=== PATIENT | female | born 1980 | race Asian ===

== ENCOUNTER 2021-04-20 17:47 | Emergency (ER) | payer OTHER ==
[2021-04-20 18:10] LABS: BASOPHILS # (AUTO) 0.1 10^3/uL (0.0-0.1); BASOPHILS % (AUTO) 0.4 %; EOSINOPHILS # (AUTO) 0.1 10^3/uL (0.0-0.7); EOSINOPHILS % (AUTO) 0.7 %; HCT - HEMATOCRIT 34.4 % (37.0-47.0); HGB - HEMOGLOBIN 11.8 g/dL (12.0-16.0); LYMPHOCYTES # (AUTO) 3.2 10^3/uL (1.5-3.5); LYMPHOCYTES % (AUTO) 24.2 %; MEAN CORPUSCULAR HEMOGLOBIN 31.1 pg (27.0-31.0); MEAN CORPUSCULAR HGB CONC 34.3 g/dL (32.0-36.0); MEAN CORPUSCULAR VOLUME 90.5 fL (81.0-99.0); MEAN PLATELET VOLUME 10.8 fL (7.9-10.8); MONOCYTES # (AUTO) 0.6 10^3/uL (0.0-1.0); MONOCYTES % (AUTO) 4.5 %; NEUTROPHILS # (AUTO) 9.3 10^3/uL (1.5-6.6); NEUTROPHILS % (AUTO) 69.8 %; PLT - PLATELET COUNT 182 10^3/uL (130-450); WHITE BLOOD COUNT 13.3 x10^3/uL (4.8-10.8)
[2021-04-20 18:20] LABS: ALBUMIN 4.4 g/dL (3.2-5.5); ALBUMIN/GLOBULIN RATIO 1.4 (1.0-2.2); BILIRUBIN,TOTAL 0.6 mg/dL (0.2-1.0); CALCIUM 9.2 mg/dL (8.5-10.3); CREATININE 0.7 mg/dL (0.4-1.0); POTASSIUM 3.2 mmol/L (3.5-5.0); TOTAL PROTEIN 7.6 g/dL (6.7-8.2)
--- NOTE | 2021-04-20 18:52 | ED Physician Documentation ---
PD HPI ABD PAIN - Stated complaint Stated Complaint: ABD PX - Chief complaint Chief Complaint: Abd Pain - History obtained from History obtained from: Patient - Additional information Additional information: Healthy 41-year-old woman developed gradual onset but relatively sudden onset central abdominal pain associated with 3 episodes of vomiting since 3 PM this afternoon. No change in bowel movements. She has had ovarian cyst before. Pain radiates to the back. Last menses was about a week ago. No history of abdominal surgeries. Review of Systems Ten Systems: 10 systems reviewed and negative Constitutional: reports: Chills, Reviewed and negative Ears: reports: Reviewed and negative PD PAST MEDICAL HISTORY - Present Medications Home Medications: Ambulatory Orders Medication Instructions Recorded Confirmed Oxycodone HCl/Acetaminophen 1 - 2 each PO Q6H PRN #14 tablet 04/20/21 [Percocet 5-325 mg Tablet] - Allergies Allergies/Adverse Reactions: Allergies Allergy/AdvReac Type Severity Reaction Status Date / Time No Known Drug Allergies Allergy Verified 04/20/21 17:53 PD ED PE NORMAL - Vitals Vital signs reviewed: Yes - General General: Alert and oriented X 3, No acute distress - HEENT HEENT: PERRL, EOMI - Neck Neck: Supple, no meningeal sign, No bony TTP - Cardiac Cardiac: RRR, No murmur - Respiratory Respiratory: No respiratory distress, Clear bilaterally - Abdomen Abdomen: Normal bowel sounds, Soft, Other (Focally tender in the right lower quadrant without surgical signs) - Back Back: No CVA TTP, No spinal TTP - Derm Derm: Normal color, Warm and dry - Extremities Extremities: No edema, No calf tenderness / cord - Neuro Neuro: Alert and oriented X 3, Normal speech Results - Vitals Vitals: Vital Signs - 24 hr 04/20/21 04/20/21 04/20/21 17:53 19:56 21:00 Temperature 36.6 C Heart Rate 80 80 82 Respiratory 16 16 17 Rate Blood Pressure 113/62 96/64 90/65 O2 Saturation 100 100 100 04/20/21 22:05 Temperature 36.6 C Heart Rate 82 Respiratory 16 Rate Blood Pressure 104/55 L O2 Saturation 100 Oxygen O2 Source Room air - Labs Labs: Laboratory Tests 04/20/21 04/20/21 04/20/21 18:02 18:02 19:06 WBC 13.3 H RBC 3.80 L Hgb 11.8 L Hct 34.4 L MCV 90.5 MCH 31.1 H MCHC 34.3 RDW 13.0 Plt Count 182 MPV 10.8 Neut # (Auto) 9.3 H Lymph # (Auto) 3.2 [place] # (Auto) 0.6 Eos # (Auto) 0.1 Baso # (Auto) 0.1 Absolute Nucleated RBC 0.00 Nucleated RBC % 0.0 Sodium 138 Potassium 3.2 L Chloride 104 Carbon Dioxide 23 Anion Gap 11.0 BUN 18 Creatinine 0.7 Estimated GFR (MDRD) 93 Glucose 114 H Calcium 9.2 Total Bilirubin 0.6 AST 25 ALT 21 Alkaline Phosphatase 33 L Total Protein 7.6 Albumin 4.4 Globulin 3.2 Albumin/Globulin Ratio 1.4 Lipase 39 Urine Color YELLOW Urine Clarity CLEAR Urine pH 5.0 Ur Specific [place] >=1.030 H Urine Protein NEGATIVE Urine Glucose (UA) NEGATIVE Urine Ketones TRACE Urine Occult Blood SMALL H Urine Nitrite NEGATIVE Urine Bilirubin NEGATIVE Urine Urobilinogen 0.2 (NORMAL) Ur Leukocyte Esterase NEGATIVE Urine RBC 0-5 Urine WBC 4-5 Ur Squamous Epith Cells MOD Squamous H Urine Bacteria Moderate H Urine Mucus Moderate Strands Ur Microscopic Review INDICATED Urine Culture Comments NOT INDICATED Urine HCG, Qual 04/20/21 19:06 WBC RBC Hgb Hct MCV MCH MCHC RDW Plt Count MPV Neut # (Auto) Lymph # (Auto) [place] # (Auto) Eos # (Auto) Baso # (Auto) Absolute Nucleated RBC Nucleated RBC % Sodium Potassium Chloride Carbon Dioxide Anion Gap BUN Creatinine Estimated GFR (MDRD) Glucose Calcium Total Bilirubin AST ALT Alkaline Phosphatase Total Protein Albumin Globulin Albumin/Globulin Ratio Lipase Urine Color Urine Clarity Urine pH Ur Specific [place] Urine Protein Urine Glucose (UA) Urine Ketones Urine Occult Blood Urine Nitrite Urine Bilirubin Urine Urobilinogen Ur Leukocyte Esterase Urine RBC Urine WBC Ur Squamous Epith Cells Urine Bacteria Urine Mucus Ur Microscopic Review Urine Culture Comments Urine HCG, Qual NEGATIVE PD MEDICAL DECISION MAKING - ED course ED course: 41-year-old woman presents with rapid but not sudden onset right lower quadrant pain starting today. Her appendix on CT is normal. She has a large right ovarian cyst measuring 7.1 x 6.9 x 6.3 cm and bilateral renal cysts. This was followed by a pelvic ultrasound to rule out torsion and per the medical insurance claims specialist there was no evidence of torsion. She was feeling better after divided doses of medications here. Discussed the need for gynecology follow-up and usual return precautions. I am prescribing a short course of short-acting opioid pain medication for this patient. I have reviewed the patients ORTHOTIC AIDE and no concerning findings were noted. I have discussed that the opioids are for short term therapy only, and will not be refilled from the ED. Departure - Departure Disposition: 01 Home, Self Care Clinical Impression: Abdominal pain Qualifiers: Abdominal location: right lower quadrant Qualified Code(s): R10.31 - Right lower quadrant pain Ovarian cyst Qualifiers: Laterality: right Qualified Code(s): N83.201 - Unspecified ovarian cyst, right side Condition: Good Record reviewed to determine appropriate education?: Yes Instructions: ED Cyst Ovarian Follow-Up: [facility] [Provider Group] Prescriptions: Oxycodone HCl/Acetaminophen [Percocet 5-325 mg Tablet] 1 - 2 each PO Q6H PRN #14 tablet PRN Reason: pain Comments: You do have a fairly large right ovarian cyst, measuring 7.1 x 6.9 x 6.3 cm. This is a common phenomenon but there is thankfully no evidence of ovarian torsion. Return if you worsen or if pain is uncontrolled with the Percocet. You should also take ibuprofen per package instructions. Follow-up with the discovery guide regardless, consider ultrasonography in approximately 6 weeks to evaluate whether the cyst is still there or gone. The phone number for the local discovery guide office is on this form. Calling tomorrow for an appointment. I am prescribing a short course of narcotic pain medication for you. These are potentially dangerous and addictive medications that should be used carefully. These medications may constipate you. Take an [id number] stool softener (docusate) twice daily with plenty of water while taking these medications. If you go 24 hours without a bowel movement, take [id number] miralax, per package instructions. Do not drink or drive while taking these medications. If you received narcotic or sedating medications while in the emergency department, do not drive for 24 hours. Store this medication in a safe, secure place and out of reach of children. It is a violation of federal law to give or sell this medication to another person or to use in a manner other than prescribed. The ED will not refill narcotic prescriptions, including prescriptions lost or stolen. To dispose of unwanted medications: 1. [facility] at [address] in [place] has a medication drop box. They accept prescription medications (in pill form) Monday through Monday 9:00 a.m. to 5:00 p.m. 2. The [facility] [employer] accepts prescription medications (in pill form only) for disposal year round. Call for more information. 3. Contact the [facility] for the next [facility] sponsored prescription drug collection event. , [phone], or [phone]; Note that many narcotic pain relievers also contain Tylenol/acetaminophen. Please ensure that your total dose of acetaminophen from all sources does not exceed 3 g (3000 mg) per day. Discharge Date/Time: 04/20/21 22:14
[2021-04-20] MEDS ORDERED: MORPHINE 2 MG/ML CARPUJECT IVP STA (19:08)
[2021-04-20] MEDS ORDERED: ONDANSETRON 4 MG/2 ML VIAL IVP STA (19:08)
[2021-04-20 19:20] LABS: BILIRUBIN,URINE NEGATIVE (NEGATIVE); GLUCOSE, URINE (UA) NEGATIVE (NEGATIVE); KETONES,URINE (UA) TRACE mg/dL (NEGATIVE); LEUKOCYTE ESTERASE, URINE NEGATIVE (NEGATIVE); NITRITE,URINE NEGATIVE (NEGATIVE); OCCULT BLOOD,URINE SMALL (NEGATIVE); PROTEIN,URINE NEGATIVE (NEGATIVE); UROBILINOGEN,URINE 0.2 (NORMAL) E.U./dL (NORMAL)
[2021-04-20 19:21] LABS: CLARITY,URINE CLEAR (CLEAR)
[2021-04-20 19:22] LABS: HCG UR QUAL NEGATIVE
[2021-04-20 19:29] LABS: RBC,URINE 0-5 /HPF (0-5); SQUAMOUS EPITHELIAL CELL,UR MOD Squamous (<= Few)
[2021-04-20 19:30] LABS: BACTERIA,URINE Moderate /HPF (None Seen); MUCUS,URINE Moderate Strands
[2021-04-20] MEDS ORDERED: HYDROmorphone 1 MG/ML CARPUJECT IVP STA ×2 (20:47→21:12)
[2021-04-20] MEDS ORDERED: IOPAMIDOL-300 100 ML VIAL ONE (20:47)
[2021-04-20] MEDS ORDERED: KETOROLAC 15 MG/ML VIAL IVP STA (21:12)
--- NOTE | 2021-04-20 21:23 | CT Report ---
PROCEDURE: Abdomen/Pelvis W INDICATIONS: IV only, RLQ pain CONTRAST: IV CONTRAST: Isovue 300 ml: 100 PO CONTRAST: *NO PO CONTRAST TECHNIQUE: After the administration of IV contrast, 5 mm thick sections acquired from the diaphragms to the symp hysis. 5 mm thick coronal and sagittal reformats were acquired. For radiation dose reduction, the f ollowing was used: automated exposure control, adjustment of mA and/or kV according to patient size. COMPARISON: None. FINDINGS: Image quality: Excellent. ABDOMEN: Lung bases: Lung bases are clear. Heart size is normal. Solid organs: Liver and spleen are normal in size and enhancement. Gallbladder is within normal guido its. Biliary system is non dilated. Pancreas enhances normally. No adrenal nodules. Kidneys demon strate normal size and enhancement, without hydronephrosis. Bilateral renal cortical cysts are seen measures up to 2 cm in size in midpole of right kidney. Peritoneum and bowel: Bowel loops demonstrate normal wall thickness and caliber. No free fluid or a ir. Appendix is visualized in right lower quadrant and is normal in size and appearance. No abscess collection. Nodes and vessels: No retroperitoneal or mesenteric adenopathy by size criteria. Aorta and inferior vena cava are normal in size. Miscellaneous: No ventral hernias. PELVIS: Genitourinary: Bladder wall thickness is normal. Uterus and left ovary show no gross abnormality. L arge thin-walled right ovarian cyst is noted measures 7.1 x 6.9 x 6.3 cm in size. Miscellaneous: No inguinal hernias or adenopathy. Bones: No suspicious bony lesions. No vertebral body compression fractures. IMPRESSION: 1. Normal appendix. No abnormal bowel wall thickening. No bowel obstruction. No free fluid or free ai r. 2. Large thin-walled cystic structure in right adnexa likely represent enlarged right ovarian cyst an d measures 7.1 x 6.9 x 6.3 cm in size. 3. Bilateral renal cysts as above. No hydronephrosis. Reviewed by: Samuel Alonso MD on 04/20/2021 9:21 PM PDT Approved by: Samuel Alonso MD on 04/20/2021 9:21 PM PDT Station ID: [id number]
[2021-04-20] MEDS ORDERED: IOPAMIDOL-300 100 ML VIAL IVP ONE (21:39)
[2021-04-20] MEDS ORDERED: oxyCODONE/ACET 5/325 Prepack 4 PO STA (21:57)
[2021-04-20 22:06] VITALS: BP 104/55
--- NOTE | 2021-04-21 09:01 | Ultrasound Report ---
PROCEDURE: Pelvic w/Doppler Limited INDICATIONS: R PELVIC PAIN TECHNIQUE: Real-time transabdominal scanning was performed of the pelvic organs, with image documentation. COMPARISON: CT abdomen pelvis performed the same day. FINDINGS: Uterus: Uterus is anteverted and normal in size at 7.8 x 4.0 x 3.6 cm. Endometrium measures 4 mm in combined thickness. Ovaries: The right ovary measures 9.5 x 6.2 x 8.0 cm and contains a unilocular thin-walled cyst lisa uring 6.3 x 5.4 x 5.5 cm. Right ovarian stroma demonstrates normal arterial and venous flow. Left ovary measures 3.6 x 1.8 x 2.2 cm and has a normal follicular echotexture. Other: No free pelvic fluid. IMPRESSION: 1. Large, simple right ovarian cyst without sonographic evidence of torsion. 2. Normal uterus and left ovary. 3. Concordant with preliminary report. Reviewed by: Brynn Dugan MD on 04/21/2021 9:00 AM PDT Approved by: Brynn Dugan MD on 04/21/2021 9:00 AM PDT Station ID: [id number]
== END 2021-04-20 22:14 | disposition home or self-care (01) ==
LOC: ED 17:47
DX: R10.31 Right lower quadrant pain (principal); N83.201 Unspecified ovarian cyst, right side; N28.1 Cyst of kidney, acquired
CPT/HCPCS: 36415; 74177; 76856; 80053; 81001; 81025; 83690; 85025; 93976; 96374; 96375; 99284; 99285; J1170; Q9967; 81003; 87086

== ENCOUNTER 2022-06-28 20:04 | Emergency (ER) | payer OTHER ==
[2022-06-28 20:33] LABS: BASOPHILS % (AUTO) 0.3 %; EOSINOPHILS # (AUTO) 0.1 10^3/uL (0.0-0.7); EOSINOPHILS % (AUTO) 0.6 %; HCT - HEMATOCRIT 36.2 % (37.0-47.0); HGB - HEMOGLOBIN 12.2 g/dL (12.0-16.0); LYMPHOCYTES # (AUTO) 1.7 10^3/uL (1.5-3.5); MEAN CORPUSCULAR HEMOGLOBIN 30.7 pg (27.0-31.0); MEAN CORPUSCULAR HGB CONC 33.7 g/dL (32.0-36.0); MEAN PLATELET VOLUME 10.9 fL (7.9-10.8); MONOCYTES # (AUTO) 0.5 10^3/uL (0.0-1.0); MONOCYTES % (AUTO) 4.3 %; NEUTROPHILS # (AUTO) 8.9 10^3/uL (1.5-6.6); NEUTROPHILS % (AUTO) 79.4 %; PLT - PLATELET COUNT 192 10^3/uL (130-450); RED BLOOD COUNT 3.98 10^6/uL (4.20-5.40); RED CELL DISTRIBUTION WIDTH 13.4 % (12.0-15.0); WHITE BLOOD COUNT 11.2 x10^3/uL (4.8-10.8)
[2022-06-28 20:46] LABS: ALBUMIN 4.3 g/dL (3.2-5.5); ALBUMIN/GLOBULIN RATIO 1.3 (1.0-2.2); BILIRUBIN,TOTAL 0.6 mg/dL (0.2-1.0); CREATININE 0.6 mg/dL (0.4-1.0); POTASSIUM 3.8 mmol/L (3.5-5.0); TOTAL PROTEIN 7.6 g/dL (6.7-8.2)
[2022-06-28 21:33] LABS: BILIRUBIN,URINE NEGATIVE (NEGATIVE); GLUCOSE, URINE (UA) NEGATIVE (NEGATIVE); KETONES,URINE (UA) >=80 mg/dL (NEGATIVE); LEUKOCYTE ESTERASE, URINE NEGATIVE (NEGATIVE); NITRITE,URINE NEGATIVE (NEGATIVE); OCCULT BLOOD,URINE LARGE (NEGATIVE); PROTEIN,URINE TRACE mg/dL (NEGATIVE); UROBILINOGEN,URINE 0.2 (NORMAL) E.U./dL (NORMAL)
[2022-06-28] MEDS ORDERED: SODIUM CHLORIDE 0.9% 1,000 ML IV STA (21:33)
[2022-06-28] MEDS ORDERED: MORPHINE 2 MG/ML CARPUJECT IVP STA ×2 (21:33→23:09)
[2022-06-28 21:35] LABS: CLARITY,URINE CLEAR (CLEAR)
--- NOTE | 2022-06-28 21:35 | ED Physician Documentation ---
History of Present Illness - Stated complaint Stated Complaint: ABD PX,VOMITTING - Chief complaint Chief Complaint: Abd Pain - History obtained from History obtained from: Patient, Family () - Additonal information Additional information: 42-year-old woman with pmh R ovarian cyst presents with right lower quadrant abdominal pain radiating to flank, gradual onset about 3 hours ago, sharp qualit y, constant, cramping up in severity to 7 out of 10 at present, associated with nausea, nonbloody nonbilious vomiting, and nonbloody diarrhea x3. Patient took Tylenol at 7 PM. denies fever, urinary sx. LMP 06/25/22 (currently menstruating). Patient also states she exercised vigorously today. Review of Systems Ten Systems: 10 systems reviewed and negative Constitutional: denies: Fever Cardiac: denies: Chest pain / pressure Respiratory: denies: Dyspnea GI: reports: Abdominal Pain, Nausea, Vomiting, Diarrhea : denies: Dysuria Musculoskeletal: reports: Back pain PD PAST MEDICAL HISTORY - Present Medications Home Medications: Ambulatory Orders Medication Instructions Recorded Confirmed No Known Home Medications 06/28/22 06/28/22 - Allergies Allergies/Adverse Reactions: Allergies Allergy/AdvReac Type Severity Reaction Status Date / Time No Known Drug Allergies Allergy Verified 06/28/22 20:20 - Social History Does the pt smoke?: No Smoking Status: Never smoker PD ED PE NORMAL - Vitals Vital signs reviewed: Yes - General General: Alert and oriented X 3, No acute distress, Well developed/nourished - HEENT HEENT: Atraumatic, PERRL, EOMI - Neck Neck: Supple, no meningeal sign - Cardiac Cardiac: RRR - Respiratory Respiratory: No respiratory distress, Clear bilaterally - Abdomen Abdomen: Other (RLQ discomfort to palpation. otherwise ntnd) - Back Back: No CVA TTP - Derm Derm: Normal color, Warm and dry - Extremities Extremities: No deformity - Neuro Neuro: Alert and oriented X 3, No motor deficit, No sensory deficit - Psych Psych: Normal mood, Normal affect Results - Vitals Vitals: Vital Signs - 24 hr 06/28/22 06/28/22 06/28/22 20:18 21:45 23:04 Temperature 36.6 C Heart Rate 72 97 89 Respiratory 16 14 12 Rate Blood Pressure 125/69 97/60 119/82 H O2 Saturation 100 100 100 06/29/22 00:00 Temperature Heart Rate 93 Respiratory 14 Rate Blood Pressure 119/87 H O2 Saturation 98 Oxygen O2 Source Room air - Labs Labs: Laboratory Tests 06/28/22 06/28/22 06/28/22 20:29 20:29 21:07 WBC 11.2 H RBC 3.98 L Hgb 12.2 Hct 36.2 L MCV 91.0 MCH 30.7 MCHC 33.7 RDW 13.4 Plt Count 192 MPV 10.9 H Neut # (Auto) 8.9 H Lymph # (Auto) 1.7 [place] # (Auto) 0.5 Eos # (Auto) 0.1 Baso # (Auto) 0.0 Absolute Nucleated RBC 0.00 Nucleated RBC % 0.0 Sodium 136 Potassium 3.8 Chloride 102 Carbon Dioxide 23 Anion Gap 11.0 BUN 16 Creatinine 0.6 Estimated GFR (MDRD) 111 Glucose 117 H Calcium 9.0 Total Bilirubin 0.6 AST 18 ALT 14 Alkaline Phosphatase 42 Total Protein 7.6 Albumin 4.3 Globulin 3.3 Albumin/Globulin Ratio 1.3 Lipase 45 Urine Color YELLOW Urine Clarity CLEAR Urine pH 6.0 Ur Specific [place] >=1.030 H Urine Protein TRACE Urine Glucose (UA) NEGATIVE Urine Ketones >=80 H Urine Occult Blood LARGE H Urine Nitrite NEGATIVE Urine Bilirubin NEGATIVE Urine Urobilinogen 0.2 (NORMAL) Ur Leukocyte Esterase NEGATIVE Urine RBC 11-25 H Urine WBC 0-3 Ur Squamous Epith Cells FEW Squamous Urine Bacteria Few Urine Mucus Moderate Strands Ur Microscopic Review INDICATED Urine Culture Comments NOT INDICATED Urine HCG, Qual 06/28/22 21:07 WBC RBC Hgb Hct MCV MCH MCHC RDW Plt Count MPV Neut # (Auto) Lymph # (Auto) [place] # (Auto) Eos # (Auto) Baso # (Auto) Absolute Nucleated RBC Nucleated RBC % Sodium Potassium Chloride Carbon Dioxide Anion Gap BUN Creatinine Estimated GFR (MDRD) Glucose Calcium Total Bilirubin AST ALT Alkaline Phosphatase Total Protein Albumin Globulin Albumin/Globulin Ratio Lipase Urine Color Urine Clarity Urine pH Ur Specific [place] Urine Protein Urine Glucose (UA) Urine Ketones Urine Occult Blood Urine Nitrite Urine Bilirubin Urine Urobilinogen Ur Leukocyte Esterase Urine RBC Urine WBC Ur Squamous Epith Cells Urine Bacteria Urine Mucus Ur Microscopic Review Urine Culture Comments Urine HCG, Qual NEGATIVE PD MEDICAL DECISION MAKING - ED course ED course: 42-year-old woman presents with right lower quadrant pain radiating to the flank. Differential includes ovarian torsion, appendicitis, muscle strain, ki dney stones, will treat symptomatically, obtain test and reevaluate. pain improved to 5/10 s/p pain meds. d/w patient regarding ct and u/s findings. she will f/u with senior cobol developer and pcp. return precautions given. Departure - Departure Disposition: Home, Self Care Clinical Impression: Ovarian cyst, Abdominal pain Condition: Good Instructions: Abdominal Pain Follow-Up: Opal Dalton MD [Provider Admit Priv/Credential] - Nia Valera PA [Provider Admit Priv/Credential] - Comments: You are seen in the emergency department for evaluation of abdominal pain. Your CT and ultrasound showed a right ovarian cyst but no other acute findings. Please follow-up with RD PROJECT MANAGER and with a primary care practitioner. Return to the emergency department if you experience any new or worsening symptoms or have other concerns.
[2022-06-28 21:36] LABS: HCG UR QUAL NEGATIVE
[2022-06-28 21:43] LABS: BACTERIA,URINE Few /HPF (None Seen); MUCUS,URINE Moderate Strands; SQUAMOUS EPITHELIAL CELL,UR FEW Squamous (<= Few); WBC,URINE 0-3 /HPF (0-5)
[2022-06-28] MEDS ORDERED: iohexoL-300 100 ML VIAL ONE (22:08)
[2022-06-28] MEDS ORDERED: iohexoL-300 100 ML VIAL IVP ONE (22:56)
--- NOTE | 2022-06-28 23:29 | CT Report ---
PROCEDURE: Abdomen/Pelvis W INDICATIONS: RLQ pain CONTRAST: IV CONTRAST: Isovue 300 ml: 100 PO CONTRAST: *NO PO CONTRAST TECHNIQUE: After the administration of intravenous contrast, 5 mm thick sections acquired from the diaphragms to the symphysis. 5 mm thick coronal and sagittal reformats were acquired. For radiation dose reducti on, the following was used: automated exposure control, adjustment of mA and/or kV according to beck ent size. COMPARISON: Ultrasound pelvis 04/20/2021, CT abdomen pelvis 06/28/2022. FINDINGS: Image quality: Excellent. Lung bases:There is minimal dependent atelectasis. Heart: Heart is normal in size. ABDOMEN: Liver: No mass lesion. Gallbladder: Within normal limits without calcified gallstones. Biliary ducts: No biliary ductal dilatation. Pancreas: Unremarkable. Spleen: Normal in size. Adrenal Glands: No adrenal nodules. Kidneys and Ureters: No hydronephrosis.There is a right renal cortical cyst as well as a small hypo density in the left kidney likely representing a small cyst. Stomach and Bowel: Stomach, small bowel loops, and colon are normal in caliber and wall thickness. T he appendix is normal in appearance. Peritoneum: No abnormal intraperitoneal fluid. No free air. Ventral Wall: No hernia. Abdominal Nodes: No retroperitoneal or mesenteric adenopathy by size criteria. Vessels: Aorta and inferior vena cava are normal in size. PELVIS: Pelvic Organs: There is a right adnexal cyst measuring approximately 7.4 x 6.3 cm in dimension. Bladder: Unremarkable. Pelvic Nodes: No enlarged lymph nodes. Miscellaneous: No inguinal hernias are seen. Bones: Visualized osseous structures demonstrate no suspicious focal lesions. IMPRESSION: 1. No evidence of appendicitis. 2. Large right adnexal cyst redemonstrated. Recommend further evaluation with a follow-up pelvic ultr asound. Reviewed by: Kayden Farah MD on 06/28/2022 11:35 PM PDT Approved by: Kayden Farah MD on 06/28/2022 11:35 PM PDT Station ID: [id number]
--- NOTE | 2022-06-29 00:09 | Ultrasound Report ---
PROCEDURE: Pelvic w/Doppler Complete INDICATIONS: RLQ PAIN, HX RT OV CYST TECHNIQUE: Real-time scanning was performed of the pelvic organs, with image documentation. Doppler interrogati on was performed of the ovaries bilaterally. COMPARISON: CT abdomen pelvis 06/28/2022, pelvic ultrasound 04/20/2021. FINDINGS: No pathologic free abdominal or pelvic fluid. Uterus: Uterus is anteverted and measures 9.5 x 4.5 x 5 cm. Endometrium measures up to 0.5 cm. Ovaries: The right ovary measures 10.5 x 6.5 x 8.2 cm with volume of 290 mL. The left ovary measures 2.6 x 2.6 x 2.2 cm with a volume of 7.7 mL. There is patent arterial and venous flow demonstrated wi thin each ovary. A thin-walled anechoic cyst is demonstrated within the right ovary measuring up to 7 .2 x 5.8 x 7.6 cm, increased in size compared to the prior ultrasound. IMPRESSION: 1. Simple appearing right ovarian cyst appears slightly increased in size compared to the prior study . The findings are nonspecific but a cystic neoplasm can't be excluded. 2. No definite evidence of ovarian torsion. Reviewed by: Kayden Farah MD on 06/29/2022 12:07 AM PDT Approved by: Kayden Farah MD on 06/29/2022 12:07 AM PDT Station ID: [id number]
[2022-06-29] MEDS ORDERED: KETOROLAC 30 MG/ML VIAL IVP STA (00:53)
[2022-06-29 00:58] VITALS: BP 110/88
== END 2022-06-29 01:09 | disposition home or self-care (01) ==
LOC: ED 20:04
DX: N83.201 Unspecified ovarian cyst, right side (principal)
CPT/HCPCS: 36415; 74177; 76856; 80053; 81001; 81025; 83690; 85025; 93975; 96374; 96375; 96376; 99282; 99284; Q9967; 81003; 87086

== ENCOUNTER 2024-06-19 13:19 | Outpatient (CLI) | payer OTHER ==
--- NOTE | 2024-06-20 10:50 | Mammography Report ---
BILATERAL FIRST EVER DIGITAL SCREENING MAMMOGRAM 3D/2D WITH EXAGGERATED CC: 06/19/2024 CLINICAL: Baseline exam. Routine screening. No prior exams were available for comparison. The breasts are extremely dense, which lowers the sensitivity of mammography (category d />75% glandu lar tissue). No significant masses, calcifications, or other findings are seen in either breast. IMPRESSION: NEGATIVE There is no mammographic evidence of malignancy. A 1 year screening mammogram is recommended. Based on Tyrer-Cuzick model (a risk assessment model), the patient's lifetime risk is 22.8% and her 1 0 year risk is 3.6%. If a patient has an elevated risk, a more comprehensive evaluation should be con sidered and/or a referral to a genetic counselor. The [place] [employer], [employer], and NCCN Guidelines advise the consideration of Breast MRI as an adjunct to screening mammog mia in patients whose "Lifetime risk to develop breast cancer" is 20% or higher. This exam was interpreted at Station ID: [id number]. NOTE: For mammograms, a report in lay terms will be sent to the patient. Approximately 15% of breast malignancies will not be visualized mammographically. In the management of a palpable breast mass, a negative mammogram must not discourage biopsy of a clinically suspicious lesion. Electronically Signed By: Everardo paredes/mala:06/19/2024 14:59:30 letter sent: No_Letter ACR BI-RADS Category 1: Negative PARENCHYMAL PATTERN: (VD) - The breast(s) demonstrate(s) extremely dense parenchyma, limiting the sen sitivity of mammography. BI-RADS CATEGORY: (1) - 1 RECOMMENDATION: (ANNUAL) - Recommend routine annual screening mammography. [id number] 1 year screening LATERALITY: (B)
== END 2024-06-19 13:20 | disposition home or self-care (01) ==
LOC: DI.S 13:19
DX: Z12.31 Encounter for screening mammogram for malignant neoplasm of breast (principal); R92.30 Dense breasts, unspecified